=== PATIENT | male | born 1940 | race Caucasian/White ===

== ENCOUNTER 2018-10-22 19:19 | Inpatient (IN) | payer OTHER, MEDICARE ==
[2018-10-22] MEDS ORDERED: IPRATROPIUM/ALBUTEROL 3 ML DEYVIAL IH ONE (19:42)
[2018-10-22] MEDS ORDERED: methylPREDNISolone SOD SUCC 125 MG/2 ML VIAL IVP ONE (19:42)
[2018-10-22] MEDS ORDERED: ALBUTEROL 3 ML DEYVIAL IH ONE (19:42)
[2018-10-22 19:47] LABS: PLATELET COUNT 161 10^3/uL (150-400)
--- NOTE | 2018-10-22 19:48 | EDPHY ---
H & P Stated Complaint: SOB, hx COPD, increasing his O2 xfew days Time Seen by Provider: 10/22/18 19:27 HPI/ROS: CHIEF COMPLAINT: Shortness of breath HISTORY OF PRESENT ILLNESS: 77-year-old male with a history of COPD, O2 dependent, 2 L daily, presents reporting that over last 1-2 days he has had increased shortness of breath with a significant increased today. No fever, minimal cough, no chest pain. Patient has been increasing his O2 with little relief in his tachypnea and shortness of breath. Used a meter dose inhaler today with minimal improvement. Also took prednisone 40 mg. No fever, chills, chest pain, palpitations, vomiting, diarrhea, urinary complaints, headache, lightheadedness. REVIEW OF SYSTEMS: A comprehensive 10 system review of systems was reviewed and is otherwise negative aside from elements mentioned in the history of present illness and medical decision making. PAST MEDICAL HISTORY: COPD, CABG SOCIAL HISTORY: Current smoker. VITAL SIGNS Reviewed by me. Heart rate 110 on my exam, respiratory rate 24, O2 sat on 3 L 96%. Blood pressure 170/102 GENERAL: Cachectic, thin male, accessory muscle use. HEENT: Atraumatic. Eyes: No icterus, no injection. Mouth: Dry mucous membranes. No erythema or lesions. Neck: supple with no adenopathy. LUNGS: Diffuse wheezes, no rhonchi or rales, diminished breath sounds. CARDIAC: Slightly irregular, no rubs murmurs or gallops appreciated ABDOMEN: Soft, nontender, nondistended, bowel sounds normal. BACK: No CVA tenderness. EXTREMITIES: No trauma. 1+ pitting edema to the lower calf.. NEURO: Alert and oriented, grossly nonfocal. SKIN: Warm and dry, no rash. PSYCHIATRIC: Normal mentation, no agitation. - Personal History Current Tetanus Diphtheria and Acellular Pertussis (TDAP): Yes - Medical/Surgical History Hx Asthma: No Hx Chronic Respiratory Disease: Yes Hx Diabetes: No Hx Cardiac Disease: Yes Hx Renal Disease: No Hx Cirrhosis: No Hx Alcoholism: No Hx HIV/AIDS: No Hx Splenectomy or Spleen Trauma: No Other PMH: PMHx: COPD, [place] 2009. PSHx: CABG 4 vessel, unk ear surgery, hernia repair, appy,PVD w/ stents, - Social History Smoking Status: Current every day smoker Constitutional: Initial Vital Signs Temperature (C) 36.8 C 10/22/18 19:20 Heart Rate 79 10/22/18 19:20 Respiratory Rate 20 10/22/18 19:20 Blood Pressure 152/91 H 10/22/18 19:20 O2 Sat (%) 97 10/22/18 19:20 O2 Delivery Mode Nasal Cannula O2 (L/minute) 3 Allergies/Adverse Reactions: No Known Allergies Allergy (Unverified 10/22/18 19:29) Home Medications: Medication Instructions Recorded Budesonide/Formoterol 160/4.5 2 puffs IH BID 05/04/16 [Symbicort 160-4.5 Mcg Inh (*)] Albuterol Sulfate [Ventolin Hfa] 1 - 2 puffs IH Q4-6PRN PRN 10/22/18 Ipratropium/Albuterol [Combivent 1 inh IH QID PRN 10/22/18 Respimat Inhal [place](*)] predniSONE 20 mg PO BID 10/22/18 Medical Decision Making - Diagnostics EKG Interpretation: 12-LEAD EKG: Please see the full report in [facility]. My interpretation: Irregular rhythm, to be nonsustained ventricular tachycardia, downsloping ST segments inferior leads. Imaging Results: Chest X-Ray 10/22/18 19:42 Impression: 1. Underlying emphysema/COPD similar to the prior study. 2. Stable pleural thickening left base laterally. 3. Peribronchial thickening bilaterally similar to the prior study. This can be seen with chronic bronchitis or reactive airways disease. Imaging: I viewed and interpreted images myself ED Course/Re-evaluation: Ill-appearing 77-year-old male with accessory muscle use and diffuse wheezes. Patient has an irregular heartbeat with new peripheral edema. Reports feeling poorly, decreased appetite. EKG concerning for 2 beat ventricular tachycardia , evidence of multifocal atrial tachycardia versus AFib, and ischemic changes. Patient IV placed. Labs including bedside troponin and lactic acid were ordered. DuoNeb and albuterol neb provided. Chest x-ray ordered. Chest x-ray without signs of infiltrate. [place] [address], elevated troponin, elevated BNP. No history of fever. Patient will be admitted to the hospitalist service. Differential Diagnosis: Differential diagnosis for the patient's shortness of breath was considered including but not limited to pulmonary infectious processes, COPD exacerbation, pulmonary emboli, pulmonary edema, congestive heart failure, and cardiac causes. Consult/Admit Bed Type: Dr. Allan Ennis, [facility] - Data Points Laboratory Results: Laboratory Results 10/22/18 19:30 10/22/18 19:30 Medications Given: Acetylcysteine (Acetylcysteine 10% Ih/Po) 2 ml IH QID [facility] Stop: 04/22/19 20:59 Last Admin: 10/28/18 16:27 Dose: 2 ml Albuterol/Ipratropium (Duoneb) 3 ml IH QID [facility] Stop: 04/21/19 05:59 Last Admin: 10/28/18 16:27 Dose: 3 ml Aspirin Buffered (Aspirin Ec) 81 mg PO DAILY [facility] Stop: 04/24/19 08:59 Last Admin: 10/28/18 09:07 Dose: 81 mg Azithromycin (Zithromax) 250 mg PO DAILY [facility] PRN Reason: Protocol Stop: 11/24/18 08:59 Last Admin: 10/28/18 09:07 Dose: 250 mg Budesonide/Formoterol Fumarate (Symbicort 160-4.5 Mcg Inhaler) 2 puffs IH BID [facility] Stop: 04/21/19 20:59 Last Admin: 10/28/18 09:36 Dose: Not Given Enoxaparin Sodium (Lovenox) 40 mg SC DAILY [facility] Stop: 04/23/19 11:14 Last Admin: 10/28/18 09:07 Dose: 40 mg Guaifenesin (Mucinex) 1,200 mg PO BID [facility] Stop: 04/21/19 20:59 Last Admin: 10/28/18 09:07 Dose: 1,200 mg Lisinopril (Zestril) 5 mg PO DAILY [facility] Stop: 04/21/19 16:14 Last Admin: 10/28/18 09:07 Dose: 5 mg Morphine Sulfate (Roxanol Oral Solution) 2.5 - 5 mg PO Q2H PRN PRN Reason: Short of Breath/Dyspnea Stop: 11/03/18 16:44 Last Admin: 10/26/18 22:24 Dose: 5 mg Venlafaxine HCl (Effexor Xr) 75 mg PO DAILY [facility] Stop: 04/23/19 08:59 Last Admin: 10/28/18 09:06 Dose: 75 mg Discontinued Medications Albuterol (Proventil Neb) 3 ml IH EDNOW ONE Stop: 10/22/18 19:43 Last Admin: 10/22/18 19:58 Dose: 3 ml Albuterol/Ipratropium (Duoneb) 3 ml IH EDNOW ONE Stop: 10/22/18 19:43 Last Admin: 10/22/18 19:58 Dose: 3 ml Furosemide (Lasix) 20 mg PO BID@0900,1500 [facility] Stop: 04/21/19 14:59 Last Admin: 10/25/18 15:12 Dose: 20 mg Sodium Chloride (Ns) 500 mls @ 1,000 mls/hr IV EDNOW ONE PRN Reason: Protocol Stop: 10/22/18 20:20 Last Admin: 10/22/18 19:58 Dose: 500 mls Azithromycin 500 mg/ Sodium (Chloride) 255 mls @ 255 mls/hr IV DAILY@2100 [facility] PRN Reason: Protocol Stop: 11/21/18 21:29 Last Admin: 10/23/18 20:30 Dose: 255 mls Sodium Chloride (Ns) 1,000 mls @ 100 mls/hr IV ONCE ONE Stop: 10/23/18 07:20 Last Admin: 10/22/18 22:16 Dose: 1,000 mls Methylprednisolone Sodium Succinate (Solu-Medrol) 125 mg IVP EDNOW ONE Stop: 10/22/18 19:43 Last Admin: 10/22/18 19:58 Dose: 125 mg Methylprednisolone Sodium Succinate (Solu-Medrol) 125 mg IVP Q6H [facility] Stop: 04/21/19 01:59 Last Admin: 10/24/18 14:31 Dose: 125 mg Montelukast Sodium (Singulair) 10 mg PO DAILY [facility] Stop: 04/23/19 08:59 Last Admin: 10/27/18 08:37 Dose: 10 mg Potassium Chloride (Klor-Con) 40 meq PO ONCE ONE Stop: 10/26/18 05:29 Last Admin: 10/26/18 06:03 Dose: 40 meq Prednisone (Prednisone) 60 mg PO DAILY [facility] Stop: 04/23/19 08:59 Last Admin: 10/28/18 09:06 Dose: 60 mg Tiotropium [place] (Spiriva Handihaler) 18 mcg IH DAILY [facility] Stop: 04/22/19 16:44 Last Admin: 10/27/18 10:58 Dose: 1 puffs Point of Care Test Results: Chemistry 10/22/18 19:38 POC Troponin I 0.03 ng/mL ng/mL (0.00-0.08) Departure - [facility] Clinical Impression: Chronic obstructive pulmonary disease with acute exacerbation, Acute coronary syndrome Arrhythmia Qualifiers: Arrhythmia type: unspecified cardiac arrhythmia Qualified Code(s): I49.9 - Cardiac arrhythmia, unspecified Congestive heart failure Qualifiers: Heart failure type: unspecified Heart failure chronicity: acute Qualified Code( s): I50.9 - Heart failure, unspecified Condition: Fair
[2018-10-22] MEDS ORDERED: NS 500 ML IV ONE (19:51)
[2018-10-22] MEDS ORDERED: HYDROmorphONE/DILAUDID 1 MG/ML INJ IVP PRN (21:02)
[2018-10-22] MEDS ORDERED: HYDROCODONE/APAP 5/325 TAB PO PRN (21:02)
[2018-10-22] MEDS ORDERED: oxyCODONE IR 5 MG TAB PO PRN (21:02)
[2018-10-22] MEDS ORDERED: ONDANSETRON 4 MG/2 ML VIAL IVP PRN (21:02)
[2018-10-22] MEDS ORDERED: ONDANSETRON DISINTEGRATING 4 MG TAB PO PRN (21:02)
[2018-10-22] MEDS ORDERED: ALBUTEROL 60 PUFFS/8 GM MDI IH PRN (21:02)
[2018-10-22] MEDS ORDERED: NICOTINE POLACRILEX 2 MG GUM B PRN (21:02)
[2018-10-22] MEDS ORDERED: ACETAMINOPHEN 325 MG TAB PO PRN (21:02)
[2018-10-22] MEDS ORDERED: PROMETHAZINE HCL 25 MG/ML INJ IVP PRN (21:02)
[2018-10-22] MEDS ORDERED: IOPAMIDOL (ISOVUE 370) 100 ML BTL IV ONE (21:09)
--- NOTE | 2018-10-22 21:15 | PDGENHP ---
History and Physical - Chief Complaint sob - History of Present Illness 77 yo M with PMH of CAD sp CABG as well as COPD and chronic hypoxic respiratory failure on 2L chronically as well as chronic steroid use presenting with increased sob x several days. Patient is accompanied by his 2 daughters and they note that this has been present longer than that, but much worse recently. He notes that he has had swelling in his legs for at least the last several days , likely longer, but much worse recently. He denies pain in his chest or legs. He denies fevers or chills. He notes that he has had to turn his oxygen up to 5L and was still short of breath then. He notes that he takes prednisone at least 20mg basically every day, he was a bit unclear as to how he is supposed to take it but notes that if he doesn't take it he feels like he can't breathe and therefore takes it daily. He has not had much appetite for quite some time and has lost a significant amount of weight, although he can't say exactly how much. He notes that he just doesn't feel like eating. He lies down for much of the day per his daughters. He does continue to smoke, but states he has cut down to 1/3 pack per day. History Information - Allergies/Home Medication List Allergies/Adverse Reactions: No Known Allergies Allergy (Unverified 10/22/18 19:29) Home Medications: Budesonide/Formoterol 160/4.5 [Symbicort 160-4.5 Mcg Inh (*)] 2 puffs IH BID 11/12 [Last Taken 10/22/18 21:00] Albuterol Sulfate [Ventolin Hfa] 1 - 2 puffs IH Q4-6PRN PRN 10/22/18 [Last Taken Unknown] Ipratropium/Albuterol [Combivent Respimat Inhal [place](*)] 1 inh IH QID PRN 10/22 [Last Taken Unknown] predniSONE 20 mg PO BID 10/22/18 [Last Taken 10/22/18] I have personally reviewed and updated: family history, medical history, social history, surgical history - Past Medical History coronary artery disease, COPD Additional medical history: chronic respiratory failure- 2L chronically. chronic tobacco use. BPH - Surgical History Additional surgical history: hernia repairs. appendectomy. CABG. b/l ear surgery - Family History Positive for: non-pertinent Additional family history: M: CAD - Social History Smoking Status: Current every day smoker Alcohol Use: None Drug Use: None Additional social history: Lives with , is retired formerly worked at [employer]. Review of Systems Review of Systems: ROS: 10pt was reviewed & negative except for what was stated in HPI & below Physical Exam Physical Exam: Temp Pulse Resp BP Pulse Ox 36.8 C 105 H 20 129/97 H 96 10/22/18 19:20 10/22/18 20:54 10/22/18 20:54 10/22/18 20:54 10/22/18 20:54 O2 (L/minute) 3 Constitutional: chronically ill appearing, cachectic Eyes: PERRL, anicteric sclera, scleral injection Ears, Nose, Mouth, Throat: poor dentition, dry mucous membranes Cardiovascular: tachycardia, edema Respiratory: reduced air movement, respiratory distress Gastrointestinal: normoactive bowel sounds, soft, non-tender abdomen Genitourinary: no bladder tenderness Skin: warm, normal color Musculoskeletal: full muscle strength Neurologic: AAOx3 Psychiatric: interacting appropriately, flat affect Lab Data & Imaging Review 10/22/18 19:30 10/22/18 19:30 WBC 14.35 10^3/uL (3.80-9.50) H 10/22/18 19:30 RBC 4.77 10^6/uL (4.40-6.38) 10/22/18 19:30 Hgb 15.5 g/dL (13.7-17.5) 10/22/18 19:30 Hct 47.7 % (40.0-51.0) 10/22/18 19:30 MCV 100.0 fL (81.5-99.8) H 10/22/18 19:30 MCH 32.5 pg (27.9-34.1) 10/22/18 19:30 MCHC 32.5 g/dL (32.4-36.7) 10/22/18 19:30 RDW 12.4 % (11.5-15.2) 10/22/18 19:30 Plt Count 161 10^3/uL (150-400) 10/22/18 19:30 MPV 10.2 fL (8.7-11.7) 10/22/18 19:30 Neut % (Auto) 92.5 % (39.3-74.2) H 10/22/18 19:30 Lymph % (Auto) 3.1 % (15.0-45.0) L 10/22/18 19:30 [place] % (Auto) 3.7 % (4.5-13.0) L 10/22/18 19:30 Eos % (Auto) 0.0 % (0.6-7.6) L 10/22/18 19:30 Baso % (Auto) 0.1 % (0.3-1.7) L 10/22/18 19:30 Nucleat RBC Rel Count 0.0 % (0.0-0.2) 10/22/18: Absolute Neuts (auto) 13.27 10^3/uL (1.70-6.50) H 10/22/18 19:30 Absolute Lymphs (auto) 0.44 10^3/uL (1.00-3.00) L 10/22/18 19:30 Absolute Monos (auto) 0.53 10^3/uL (0.30-0.80) 10/22/18 19:30 Absolute Eos (auto) 0.00 10^3/uL (0.03-0.40) L 10/22/18 19:30 Absolute Basos (auto) 0.01 10^3/uL (0.02-0.10) L 10/22/18 19:30 Absolute Nucleated RBC 0.00 10^3/uL (0-0.01) 10/22/18 19: Immature Gran % 0.6 % (0.0-1.1) 10/22/18 19: Immature Gran # 0.09 10^3/uL (0.00-0.10) 10/22/18 19:30 RBC/WBC/PLT Morphology TNP 10/22/18 19: Platelet Estimate TNP 10/22/18 19:30 D-Dimer 0.73 ug/mLFEU (0.00-0.50) H 10/22/18 19:30 VBG Lactic Acid 2.6 mmol/L (0.7-2.1) H 10/22/18 19:30 Sodium 138 mEq/L (135-145) 10/22/18 19:30 Potassium 4.0 mEq/L (3.5-5.2) 10/22/18 19: Chloride 99 mEq/L (97-110) 10/22/18: Carbon Dioxide 36 mEq/l (22-31) H 10/22/18 19:30 Anion Gap 3 mEq/L (6-14) L 10/22/18:30 BUN 36 mg/dL (7-23) H 10/22/18:30 Creatinine 0.6 mg/dL (0.7-1.3) L 10/22/18 19:30 Estimated GFR > 60 10/22/18: Glucose 130 mg/dL (70-100) H 10/22/18: Calcium 9.3 mg/dL (8.5-10.4) 10/22/18:30 POC Troponin I 0.03 ng/mL (0.00-0.08) 10/22/18: Troponin I 0.038 ng/mL (0.000-0.034) H 10/22/18:30 NT-Pro-B Natriuret Pep 2030 pg/mL (0-450) H 10/22/18 19:30 Visualized and Interpreted Chest x-ray results: Yes Chest X-Ray results: no infiltrate Visualized and Interpreted EKG results: Yes EKG additional interpertation: tachy, a fib vs MAT, LVH Assessment & Plan Assessment: 77 yo M with PMH of CAD, COPD pw acute on chronic hypoxic respiratory failure, a fib vs MAT and e/o CHF likely right sided # acute on chronic hypoxic respiratory failure: presenting with significant sob , decreased bs and increased wob and initially requiring 5L. Presumably due to COPD exacerbation as next, but given lower extremity edema, tachycardia and hx of prolonged immobility high risk for PE as well. Will get CTA and treat if indicated. Otherwise as next. # copd with acute exacerbation: likely due to viral illness and respiratory panel pending, continue scheduled nebs, prn albuterol nebs and IV solumedrol for now. CTA as above. # lower extremity edema: concerning for right heart failure given chronic lung disease as above, echo in am, holding off on diuretics for now as no significant pulmonary edema noted on cxr and plan for dye load as above. # a fib vs mAT: with rate in the low 100s, will get repeat ECG and monitor on tele, echo in am, TSH ordered, cardiology consulted, will start lovenox for now # hyperglycemia: in the setting of chronic steroid use, will check hgb a1c # elevated troponin: without chest pain but tachycardia as above, will get serial trops, echo/cards consult as above # pre renal azotemia: elevated BUN and patient appears dry on exam despite total body volume overload, will give gentle IVF post contrast load # BPH: continue op meds # CAD: with hx of CABG, elevated troponin noted and w/u as above # cachexia: patient with significant weight loss, cachectic on exam, presumably pulmonary cachexia, dietary consult # DNR--reviewed with patient and his daughter, he recognizes that the progression of his lung disease will eventually end his life and does not want heroic measures, may be appropriate to consult hospice/palliative on this hospital stay # IP status Patient new to my care. Old records reviewed and summarized as above. Care plan reviewed with ER doctor, further hx obtained from patients daughters present at bedside.
[2018-10-22] MEDS ORDERED: NS 1,000 ML IV ONE (21:21)
[2018-10-22] MEDS: AZITHROMYCIN IV 500 MG in NS 250 ML IV SCH (22:16)
[2018-10-23 01:44] LABS: PLATELET COUNT 144 10^3/uL (150-400)
[2018-10-23] MEDS: methylPREDNISolone SOD SUCC 125 MG/2 ML VIAL IVP SCH ×4 (01:44→20:30)
[2018-10-23] MEDS: IPRATROPIUM/ALBUTEROL 3 ML DEYVIAL IH SCH ×4 (05:00→20:59)
--- NOTE | 2018-10-23 11:57 | PDMN ---
Medical Necessity Medical necessity: Pt meets IP criteria per MD & MCG M-100; est los >2 mn for eval/tx of acute COPD exacerbation w/worsening dyspnea, acute on chronic respiratory failure, concerns for R-sided heart failure & AFIB vs MAT; admit for further workup/monitoring, respiratory supportive care & Cardiology/ Palliative consults; comorbid advanced age, COPD on chronic steroids & O2, CAD, CABG, smoker; per H&P & order 10/22/18
--- NOTE | 2018-10-23 13:22 | CPEKG ---
Test Reason : OPEN Blood Pressure : / mmHG Vent. Rate : 087 BPM Atrial Rate : 091 BPM P-R Int : 110 ms QRS Dur : 087 ms QT Int : 389 ms P-R-T Axes : 080 074 -77 degrees QTc Int : 468 ms Sinus rhythm Paired ventricular premature complexes Consider left ventricular hypertrophy Anterior Q waves, possibly due to LVH Nonspecific T abnormalities, inferior leads Confirmed by Neo Mehta ([id number]) on 10/23/2018 1:21:55 PM Referred By: Allan Ennis Confirmed By:Neo Mehta
[2018-10-23] MEDS ORDERED: ALBUTEROL 3 ML DEYVIAL IH PRN (13:56)
[2018-10-23] MEDS: FUROSEMIDE 20 MG TAB PO SCH (14:08)
--- NOTE | 2018-10-23 14:38 | ASMTCMCOM ---
CM Note CM Note Notes: Pt is a 77 y/o man admitted for shortness of breath. Pt uses 2L of o2 at baseline. Pt is a smoker but reportedly had cut down. Pt and pts adult children had a palliative today w/ Jo[facility]. PT is recommending HC. Pts daughter wanted to speak to their Mom and did not want CM to call. OT is pending. CM provided palliative handout to daughters to give to Mom. Pt does not use a walker or cane at baseline. Pt still drives or has his children drive him places. Pt is being followed by transitional care. Pt is still in the process of getting [employer] insurance. Pt is interested in unskilled HC. [facility] accepts [place] [employer] insurance and provides unskilled care. CM provided the [facility] phone number to family. Needs are TBD at this time. CM to follow. Plan: TBD Date Signed: 10/23/2018 02:37 PM Electronically Signed By:CHASE Carrion
--- NOTE | 2018-10-23 15:29 | HOSPPROG ---
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 -dietary following Subjective: c/o severe SOB, frustrated that we don't have more to offer Objective: Vital Signs Temp Pulse Resp BP Pulse Ox 36.4 C 93 17 161/76 H 98 10/23/18 15:11 10/23/18 15:11 10/23/18 15:11 10/23/18 15:11 10/23/18 15:11 Laboratory Results 10/23/18 01:30 10/23/18 01:30 10/22/18 10/23/18 10/24/18 05:59 05:59 05:59 Intake Total 150 400 Balance 150 400 CTA chest - no PE EKG viewed, my personal interpretation is - sinus tachy with PAC - Physical Exam Constitutional: chronically ill appearing, uncomfortable, cachectic Cardiovascular: regular rate and rhythym, no murmur, rub, or gallop Respiratory: reduced air movement, respiratory distress Gastrointestinal: normoactive bowel sounds, soft, non-tender abdomen, no palpable masses Skin: no rashes or abrasions, no fluctuance, no induration Neurologic: AAOx3, sensation intact bilaterally Psychiatric: interacting appropriately, not anxious, not encephalopathic, thought process linear ICD10 Worksheet Patient Problems: Problems Problem Status Onset COPD (chronic obstructive pulmonary disease) Acute
--- NOTE | 2018-10-23 15:33 | ECHO ---
[email or web address] [address] [address] Main: [phone] Echocardiography Examination Transthoracic Name: SHATNELLE BARRERA MR#: [id number] Study Date: 10/23/2018 Study Time: 09:33 AM Date of : 1940 Age: 77 year(s) Height: 165.1 cm (65 in.) Weight: 45.36 kg (100 lb.) BSA: 1.47 m2 Gender: Male Examination: Echo Contrast: Image Quality: Adequate apical window, technically Rhythm: difficult parasternal window Heart Rate: BP: 131 mmHg/92 mmHg Indication: ? A fib, chf Procedure Staff Referring Physician: Rag Sorter And Cutter: Maddison Matthew [facility] Reading Physician: Vira Kapadia MD Requesting Provider: Ordering Physician: Allan Ennis Indication: ? A fib, chf Measurements Chambers AV/MV Label Value Normal Value Label Value Normal Value LVOTd 1.9 cm (1.9cm - 2.1cm) AV PGmax 9 mmHg LVOT VTI 19.5 cm (18cm - 22cm) AV PGmean 6 mmHg LVDd, 2D 5.6 cm (4.2cm - 5.9cm) AV Vmax 1.46 m/s LVDs, 2D 4.3 cm (2.1cm - 4cm) ANGEL (VTI) 1.8 cm2 IVSd, 2D 0.9 cm (0.6cm - 1.1cm) MV E Vmax 0.87 m/s LVPWd, 2D 0.9 cm (0.6cm - 1cm) MV A Vmax 1.35 m/s LVEF, BP 44 % (55% - 70%) MV E/A 0.64 LVEF, 2D 46 % (54% - 74%) MV E/E' lateral 11.5 LVOT PGmean 2 mmHg MV E/E' septal 13 (0.45 - 1.25) LVOT Vmean 0.75 m/s MV DT 264 ms RVDd, 2D 2.7 cm (1.9cm - 3.8cm) MV E' septal 0.07 m/s LA Volume, BP 50 ml (18ml - 58ml) MV PHT 0.08 s LADs, 2D 3.9 cm (3cm - 4cm) MVA PHT 2.7 cm2 LAESV index, BP 34 ml/m2 MV E' lateral 0.08 m/s RA Area 10.5 cm2 MV E/E' mean 11.6 Additional Vessels MV PHT 83 ms Label Value Normal Value MV E' mean 0.08 m/s AoRoot, 2D 2.9 cm (1.4cm - 2.6cm) TV/PV IVC 1.5 cm (1.2cm - 2.3cm) Patient: SHANTELLE BARRERA Study Date: 10/23/2018 Page 1 of 3 09:33 AM Label Value Normal Value RA Pressure 5 mmHg RVSP 35 mmHg TR Pmax 30 mmHg TR Vmax 2.74 m/s PV PGmax 4 mmHg PV Vmax, Caliper 1.03 m/s (0.6m/s - 0.9m/s) Conclusions 1. the left ventricle is normal in size. Mildly reduced LV systolic function with an ejection fraction of 44%. There is inferior hypokinesis as well as septal hypokinesis. The septum is bright suggestive of prior myocardial infarction in that territory. Grade 1 diastolic dysfunction. 2. The right ventricle is normal in size and systolic function 3. [id number] mitral regurgitation. 4. Mild aortic regurgitation. 5. Mild tricuspid regurgitation with normal estimated PA systolic pressure. 6. Compared with 05/04/2016 LV systolic function wall motion are similar. Mitral regurgitation has progressed slightly. Findings Left Ventricle: Left ventricle is normal in size. Mildly reduced systolic left ventricular function. The ejection fraction, measured by Simpsons method, is 44 %. EF range is estimated at 40 % - 45 %. Inferior hypokinesis.Septal hypokinesis. The septum is bright suggestive of previous myocardial infarction. Right Ventricle: Normal size right ventricle. Right ventricular systolic function is normal. Left Atrium: The left atrium is normal in size. Right Atrium: The right atrium is normal in size. Mitral Valve: Mitral valve appears structurally normal. Mild to moderate mitral regurgitation. No mitral valve stenosis. There is mild mitral thickening. Aortic Valve: Aortic leaflets are structurally normal. Mild aortic regurgitation is present. There is no aortic stenosis. Tricuspid Valve: Tricuspid valve leaflets are structurally normal. Mild tricuspid regurgitation. No tricuspid valve stenosis. Right Ventricular systolic pressure is measured at 35 mmHg. Pulmonary artery pressure normal. Pulmonic Valve: Pulmonic valve not well visualized. Aorta: The aortic root size in 2D measures 2.9 cm. Aorta Measurements AoRoot, 2D is 2.9 cm. IVC: The inferior vena cava is normal in size. Pericardium: No pericardial effusion. Exam Details Procedure Ordered: Echo Procedure Status: Routine study Image Quality: Adequate apical window, technically difficult parasternal window Patient: SHANTELLE BARRERA Study Date: 10/23/2018 Page 2 of 3 09:33 AM Facility Location: Cardiac Echo 1 (No Signature Object) Patient: SHANTELLE BARRERA Study Date: 10/23/2018 Page 3 of 3 09:33 AM [id number]
--- NOTE | 2018-10-23 15:49 | GCON ---
[f rep st] CONSULTATION DATE OF CONSULTATION: 10/23/2018 ADMITTING DIAGNOSIS: Shortness of breath with increased lower extremity edema. HISTORY OF PRESENT ILLNESS: This is a 77-year-old male who has a past medical history of coronary ar olvin disease, with coronary artery bypass surgery and placement of one stent. He has pulmonary histo ry of COPD and chronic hypoxic respiratory failure, chronically on 2 L of oxygen by mask. He was bro ught into the emergency room by his 2 daughters, who check in on him frequently. It was noted that nhan boothe was having increased shortness of breath and difficulty breathing despite use of oxygen. The daleif bain also noted his legs had increased swelling and became concerned enough to take him to the emerge ncy room. They had noticed these changes over the past few days this week, having become notably wor se. He has no complaint of chest pain or leg pain. He has had no recent illnesses. He was using hi s oxygen up to 5 L and still feeling short of breath. Additionally, he was using steroids over the p ast several days. He does take prednisone 20 mg most days. It was also noted that he has not had a good appetite and subsequently has lost weight. Over the last week, his daughters have noted that he has been lying down the majority of the time, which was unusual for him. At time of my visit, he co ntinues to use oxygen by mask. He is able to converse and answer questions appropriately. One of ravindra hughes daughters contributed to the discussion as well. ALLERGIES: He has no known allergies. HOME MEDICATIONS: He is on Symbicort 160/4.5 mcg inhalation 2 puffs twice daily, Ventolin 1 to 2 puf fs inhaled every 4 hours as needed, Combivent inhale once four times daily as needed, prednisone 20 m g twice daily. PAST MEDICAL HISTORY: 1. He has a significant history of coronary artery disease and COPD. 2. Chronic respiratory failure. 3. BPH. PAST SURGICAL HISTORY: 1. Bilateral hernia repair. 2. Appendectomy. 3. Coronary artery bypass surgery. 4. Bilateral ear surgeries. FAMILY HISTORY: Maternal history of coronary artery disease. SOCIAL HISTORY: 1. Smoking: He currently smokes daily. 2. Alcohol use: None. 3. Drug use: No illicit drug use. 4. Social history: He does live with his in their home. He is retired, once working at [employer]. REVIEW OF SYSTEMS: Ten-point review of systems is negative except where stated otherwise in the HPI. PHYSICAL EXAMINATION: VITAL SIGNS: Blood pressure 163/89. Heart rate 91. Respiratory rate 20. Ox ygen saturation 96%, oxygen at 3 to 4 L per oxygen mask. Temperature 36.7. EKG shows a sinus rhythm with premature PVCs and couplets. CONSTITUTIONAL: He is cachectic and appears ill. EYES: PERRL. EAR, NOSE, THROAT, MOUTH: Mucous membranes are dry. CARDIOVASCULAR: Mild tachycardia, heart rate with irregularity, mild murmur. No rubs noted. RESPIRATORY: Lung sounds are diminished with no res piratory distress noted. GASTROINTESTINAL: Normoactive bowel sounds. Abdomen is soft and nontender. GENITOURINARY: No blad obi tenderness. SKIN: Warm and dry with pale color. MUSCULOSKELETAL: Full muscle strength. NEURO LOGICAL: Alert and oriented x3. PSYCHIATRIC: Interacts appropriately. INVESTIGATIONS: A complete blood count showed white blood count of 14.35, red blood cells 4.77, hemo globin 15.5, hematocrit 47.7, MCV 100.0, platelets 161. D-dimer 0.73. Sodium 138, potassium 4.0, BUN 36, creatinine 0.6, glucose 130. Troponin 0.03. Tropo ted #2 of 0.038. Most recent troponin 0.041. BNP 2040. TSH 0.521. Hemoglobin A1c 6.3. D-dimer 0. 73. Respiratory panel (source nasal sinus swab) result: No organisms detected. Chest x-ray done on 10/22/2018. Impression: 1. Underlying emphysema/COPD, similar to previous study. 2. Stable pleural thickening, left base laterally. 3. Peribronchial thickening, bilaterally, similar to prior study. 4. Radiologist's comment: This can be seen with chronic bronchitis or reactive airway disease. CT pulmonary angiogram, 10/22/2018. Impression: 1. No evidence of pulmonary embolus with CT protocol. 2. Mild stenosis, proximal left subclavian artery, secondary to predominantly noncalcified plaque. 3. Right subclavian stent identified proximally, appears to be patent. 4. No evidence of contrast enhancement of the proximal right vertebral artery. This finding was men tioned on remote MRA of the neck study from May 2007. 5. Moderate to marked COPD with emphysema. 6. Chronic bronchial wall thickening with some scattered mucus plugging. Consider underlying chroni c bronchitis and/or active reactive airway disease. EKG on 10/23/2018. Result: 1. Sinus rhythm. Paired ventricular premature complexes. 2. Consider left ventricular hypertrophy. 3. Anterior Q waves, possibly due to LVH. 4. Nonspecific T abnormalities of the inferior leads. IMPRESSION AND PLAN: 1. Acute on chronic hypoxic respiratory failure. He did present with significant shortness of breat h, using oxygen up to 5 L per mask. This likely was a chronic obstructive pulmonary disease exacerba tion. This morning on exam, he was using oxygen at 2 to 3 L per mask and breathing comfortably. 2. Lower extremity edema. Due to his chronic lung disease, an echocardiogram is pending to determin e if there is any right heart failure or other cardiac abnormalities contributing to his condition. 3. Mildly elevated troponin. This is likely due to an oxygen mismatch. Serial troponins have been flat. We will continue to watch closely. 4. Coronary artery disease. He does have a history of coronary artery disease with a history of cor onary artery bypass grafting. He has no chest pain or other anginal-type symptoms. His EKG shows no indication of cardiac ischemia. 5. Tachypnea. Of note, he has had significant weight loss. This likely is related to his pulmonary disease. A hospitalist dietary consultation was ordered. 6. He is status DNR. He and his daughters felt appropriate to proceed with a consultation with Hosp ice/Palliative Care. We will continue to follow along. Echocardiogram results are pending. Further treatment options balaji l be considered as appropriate once echocardiogram results are obtained. At this time, he is currently stable. Thank you very much for asking us to be part of this patient's care. We will continue to follow ketan [place] #: [id number]
--- NOTE | 2018-10-23 16:36 | PDCARPN ---
Cardiology Progress Note Chief Complaint: SOB Assessment/Plan: Assessment: 1. Acute on Chronic Resp Failure---Was using high dose oxygen at home, up to 5 L. Doing well on 2 to 3 L Oxygen on Mask. Solumedrol and Neb treatments. 2. COPD Exacerbation-- end stage. Palliative consult to be done. 3. CAD with hx CABG. -- Trops 0.04--Likely related to oxygen mismatch with Respiratory failure, Now improved. 4. A on C CHF exacerbation--Mild CMP...EF 44% by Echo. Lasix 20 mg BID, and added Lisinopril 5 mg this afternoon. ECHO stable compared to 2016. 5. LE edema---venous stasis---Keep feet elevated. Tried compression stockings, he refused. 6. Pulmonary Cachexia -- Malnutrition---Dietary following. 7. DNR Plan: Continue with low dose Lasix, add Lisinopril 5 mg. Oxygen at 2 to 3 L 10/23/18 16:22 Objective: Vital Signs (8 Hrs) Temp Pulse Resp BP Pulse Ox 10/23/18 15:11 36.4 C 93 17 161/76 H 98 10/23/18 13:00 101 H 99 10/23/18 11:20 91 19 99 10/23/18 10:48 36.7 C 102 H 16 163/89 H 96 Intake/Output (24 Hrs) 10/22/18 10/23/18 10/24/18 05:59 05:59 05:59 Intake Total 150 400 Balance 150 400 Intake: Oral (ml) 150 400 Other: Weight 41.458 kg Result Diagrams: 10/23/18 01:30 10/23/18 01:30 Cardiac Labs: Cardiac Lab Results (72 Hrs) 10/23/18 10/23/18 10/23/18 07:46 01:30 01:30 Troponin I 0.041 H 0.040 H 0.044 H ICD10 Worksheet Patient Problems: Problems Problem Status Onset COPD (chronic obstructive pulmonary disease) Acute
[2018-10-23] MEDS: LISINOPRIL 5 MG TAB PO SCH (17:03)
[2018-10-23] MEDS: AZITHROMYCIN IV 500 MG in NS 250 ML IV SCH (20:30)
[2018-10-23] MEDS: guaiFENesin 600 MG TAB.ER PO SCH (20:30)
[2018-10-23] MEDS: BUDESONIDE/FORMOTEROL 160/4.5 60 PUFFS/MDI IH SCH (21:13)
[2018-10-24] MEDS: methylPREDNISolone SOD SUCC 125 MG/2 ML VIAL IVP SCH ×3 (01:58→14:31)
[2018-10-24] MEDS: IPRATROPIUM/ALBUTEROL 3 ML DEYVIAL IH SCH ×4 (05:38→21:05)
[2018-10-24] MEDS: LISINOPRIL 5 MG TAB PO SCH (08:33)
[2018-10-24] MEDS: guaiFENesin 600 MG TAB.ER PO SCH ×2 (08:33→19:41)
[2018-10-24] MEDS: FUROSEMIDE 20 MG TAB PO SCH ×2 (08:33→14:31)
[2018-10-24] MEDS: BUDESONIDE/FORMOTEROL 160/4.5 60 PUFFS/MDI IH SCH ×2 (09:18→21:06)
--- NOTE | 2018-10-24 09:46 | PDCARPN ---
Cardiology Progress Note Chief Complaint: lower extremity edema and SOB Assessment/Plan: Assessment: 1. Acute on chronic respiratory distress. breathing has improved with treatments. On high flow Nc. 2. COPD, endstage 3. AN, somewhat improved with lasix. Still has bilateral ankle edema. He sits with feet hanging down most of the time. Has compression stockings on. Encouraged to elevate feet . 4. CAD, h/o CABG. Troponins slightly elevated, 0.04 and flat. No chest pains. EF 44%, stable from prior evaluation. Plan: Continue current lasix dose, compression stockings. Encouraged elevation of feet. 10/24/18 09:43 10/24/18 09:48 10/24/18 09:51 Objective: Vital Signs (8 Hrs) Temp Pulse Resp BP Pulse Ox 10/24/18 09:18 89 16 10/24/18 06:58 36.6 C 98 16 128/60 H 93 10/24/18 05:39 85 16 94 10/24/18 03:37 37 C 94 15 126/77 H 92 Intake/Output (24 Hrs) 10/23/18 10/24/18 10/25/18 05:59 05:59 05:59 Intake Total 150 1350 Output Total 975 Balance 150 375 Intake: Oral (ml) 150 1050 IV Intake (ml) 300 Output: Urine (ml) 975 Urinal 975 Other: Weight 41.458 kg 42.5 kg Number of Voids Urinal 3 Number of Stools Toilet 1 Result Diagrams: 10/23/18 01:30 10/23/18 01:30 Cardiac Labs: Cardiac Lab Results (72 Hrs) 10/23/18 10/23/18 10/23/18 07:46 01:30 01:30 Troponin I 0.041 H 0.040 H 0.044 H Telemetry: SR to ST with frequent PVCs, couplets. Occasional bigemeny - Physical Exam Constitutional: cachectic Cardiovascular: no murmurs, other (frequent extrasystoles), No regular rate and rhythm Respiratory: reduced air movement, expiratory wheeze Skin: other (Bilateral ankle edema, R>L mild) ICD10 Worksheet Patient Problems: Problems Problem Status Onset COPD (chronic obstructive pulmonary disease) Acute
--- NOTE | 2018-10-24 13:59 | HOSPPROG ---
Hospitalist Progress Note Assessment/Plan: # severe COPD/emphysema with acute exacerbation - cont solumedrol 125 iv Q6, scheduled nebs, symbicort - ongoing tobacco use - pulm to consult - may need hospice (pall care consult placed) # acute on chronic resp failure - on vapotherm # acute on chronic sCHF, EF 44% - cont lasix - zoe-i started here # vascular disease, subclavian stenosis - not on asa # CAD s/p CABG - not on asa # SPCM d/t pulmonary cachexia Subjective: still SOB Objective: Vital Signs Temp Pulse Resp BP Pulse Ox 36.7 C 102 H 18 115/74 93 10/24/18 11:49 10/24/18 11:49 10/24/18 11:49 10/24/18 11:49 10/24/18 11:49 Laboratory Results 10/23/18 01:30 10/23/18 01:30 10/23/18 10/24/18 10/25/18 05:59 05:59 05:59 Intake Total 150 1350 Output Total 975 280 Balance 150 375 -[address] personally reviewed - Physical Exam Constitutional: cachectic Cardiovascular: regular rate and rhythym, no murmur, rub, or gallop Respiratory: reduced air movement (bilat), expiratory wheeze (diffuse), respiratory distress (mod with retractions), No rhonchi ICD10 Worksheet Patient Problems: Problems Problem Status Onset COPD (chronic obstructive pulmonary disease) Acute
--- NOTE | 2018-10-24 14:57 | ASMTCMCOM ---
CM Note CM Note Notes: CM, pt and daughter Isamar [phone] met to discuss discharge planning. Pt reports he lives with his . PCP Dr. Fredrick Muniz Pt is refusing Home Care due not feeling comfortable with people in an out of the house. CM sent referral to [facility]. Dorina reports that they will call Isamar to set up in hospital report. After Pt and daughter feel comfortable with [facility] they will then speak to about working with [facility]. CM will follow Plan: Independently with possible [facility] Date Signed: 10/24/2018 02:57 PM Electronically Signed By:Fany Alvarez
--- NOTE | 2018-10-24 16:17 | ASMTCMCOM ---
CM Note CM Note Notes: Rasheed at [facility] [phone] reports that he set up an appt with the daughter and the earliest appt is tomorrow morning. CM to follow Date Signed: 10/24/2018 04:17 PM Electronically Signed By:Fany Alvarez
--- NOTE | 2018-10-24 16:59 | PDCONSULT ---
[employer] Note: ASSESSMENT 77 year old male with recurrent COPD exacerbation. Patient has a history of recurrent exacerbations. Reviewed typically he behaves more bronchitis as a post emphysema. This confirmed on CT chest. His unclear whether he has an allergic phenotype as most of his lab draws have been on are within recent administration of oral corticosteroid use. He has minimal oxygen requirement does not have evidence of cor pulmonale on CT chest. # COPD, acute exacerbation # dyspnea/air hunger # anxiety # acute on chronic hypoxemic respiratory failure # tobacco dependence # leukocytosis PLAN # agree with azithromycin, to be continued on discharge indefinitely to reduce the risk of subsequent exacerbations # add Spiriva, to be continued discharge # trial of inhaled N-acetylcysteine given mucus plugging on CT and wheeze # abg now # IgE now # patient may be a candidate for biologic therapies but chronic steroid is likely causing a falsely low IgE total and peripheral eosinophil level # bedside spirometry # change methylpred to pred 60 qday # agree with high-flow nasal cannula as high-flow rate reduces sensation of air hunger # may also use fans # low-dose liquid morphine for air hunger # initiate Effexor XR 75 mg daily to be continued discharge for underlying anxiety # counseled on tobacco cessation Thank you for this consult. Please feel free to call with any questions IMAGING I personally reviewed interpreted radiographic images well as formal radiology reads 10/22/2018 CTA chest-no PE, no evidence of enlarged pulmonary arteries, moderate centrilobular emphysema with mosaic attenuation. Extensive bronchial wall thickening with mucus plugging I was asked by Dr. Valdez of Hospital Medicine to evaluate this patient for acute exacerbation of COPD and severe air hunger CC MANDY Bentley is a very pleasant 77-year-old male with coronary disease and prior CABG and longstanding COPD on chronic steroid use admitted with recurrent COPD exacerbation. He has not seen Dr. Stuart in over 2 years. He presented to the emergency department with 4-5 days increasing shortness of breath and wheeze. He takes prednisone 20 mg daily. He reports compliance with his inhalers. Reports cough with productive sputum production. He denies fevers chills rash syncope chest pain. He continues to actively smoke Allergy No known drug allergies Medication Medication reconciliation was reviewed and performed. See EMR for details Past medical history Severe COPD. No PFTs in many years, coronary disease status post prior CABG, chronic hypoxemic respiratory failure using 2 liters/minutes nasal cannula, chronic ongoing tobacco use, BPH prior hernia surgery and appendectomy Social history Extensive smoking history still smoking 3rd pack per day. Lives with . Retired. Formally worked a [employer] Family history No history of severe recurrent COPD exacerbations Review of system A comprehensive 10 point review of systems was obtained is negative except as per HPI Physical exam Afebrile, tachypneic in the 30s mild accessory use heart rate 88, 97% on 2 L nasal cannula GEN: Lying in bed doing neb treatment mild respiratory distress NEURO: A&Ox3, CN 2-12 GI, mild anxiety, cachectic HEENT: PERRL, EOMI, MMM, OP clear NECK: supple, trachea midline CHEST diffuse inspiratory and expiratory wheezing CVS: rrr no m/r/g, no JVD appreciated PULM: CTAB, no wheezes/rales/rhonchi ABD: soft, NT, ND, NABS EXT: no swelling, no cyanosis, full ROM SKIN: warm, dry, intact, no rash PSYCH CAM negative, anxious affect Labs Reviewed significant for leukocytosis, viral PCR negative
[2018-10-24] MEDS: TIOTROPIUM INHALER 18 MCG/DOSE 5 DOSE/MDI IH SCH (18:25)
[2018-10-24] MEDS: morphINE 10 MG/0.5 ML UDSYR PO PRN (19:45)
[2018-10-24] MEDS: ACETYLCYSTEINE 10% IH/PO 4 ML VIAL IH SCH (21:05)
[2018-10-25] MEDS: IPRATROPIUM/ALBUTEROL 3 ML DEYVIAL IH SCH ×4 (06:41→20:59)
[2018-10-25] MEDS: ACETYLCYSTEINE 10% IH/PO 4 ML VIAL IH SCH ×4 (06:41→21:00)
[2018-10-25] MEDS: FUROSEMIDE 20 MG TAB PO SCH ×2 (08:31→15:12)
[2018-10-25] MEDS: LISINOPRIL 5 MG TAB PO SCH (08:31)
[2018-10-25] MEDS: guaiFENesin 600 MG TAB.ER PO SCH ×2 (08:31→21:20)
[2018-10-25] MEDS: AZITHROMYCIN 250 MG TAB PO SCH (08:32)
[2018-10-25] MEDS: predniSONE 20 MG TAB PO SCH (08:33)
[2018-10-25] MEDS: MONTELUKAST SODIUM 10 MG TAB PO SCH (08:34)
[2018-10-25] MEDS: VENLAFAXINE XR 75 MG CAP PO SCH ×2 (08:36→09:26)
[2018-10-25] MEDS: TIOTROPIUM INHALER 18 MCG/DOSE 5 DOSE/MDI IH SCH (09:15)
[2018-10-25] MEDS: BUDESONIDE/FORMOTEROL 160/4.5 60 PUFFS/MDI IH SCH ×2 (09:23→21:02)
--- NOTE | 2018-10-25 10:58 | PDINTPN ---
Rn Patient Services Progress Note Assessment/Plan: ASSESSMENT 77 year old male with recurrent COPD exacerbation. Patient has a history of recurrent exacerbations is on chronic moderate dose prednisone 20 mg daily. He although he has evidence of both chronic bronchitis and emphysema on CT he phenotypic Rene behaves more similar to bronchitis. This confirmed on CT chest. His unclear whether he has an allergic phenotype as most of his lab draws have been on or after recent administration of oral corticosteroid use. He has minimal oxygen requirement does not have evidence of cor pulmonale on CT chest. This clinical picture is complicated by significant anxiety # COPD, acute exacerbation. # dyspnea/air hunger # anxiety # acute on chronic hypoxemic respiratory failure # tobacco dependence # leukocytosis PLAN # agree with azithromycin, to be continued on discharge indefinitely to reduce the risk of subsequent exacerbations # add Spiriva, to be continued discharge # add Singulair to be continued on discharge given steroid dependence and possible allergic phenotype. # decrease prednisone to 40 mg daily starting tomorrow # low-dose liquid morphine for air hunger # Effexor XR 75 mg daily to be continued discharge for underlying anxiety # trial of inhaled N-acetylcysteine given mucus plugging on CT # agree with high-flow nasal cannula as high-flow rate reduces sensation of air hunger # follow-up IgE total # follow up bedside spirometry # patient may be a candidate for biologic therapies but chronic steroid is likely causing a falsely low IgE total and peripheral eosinophil level # counseled on tobacco cessation IMAGING I personally reviewed interpreted radiographic images well as formal radiology reads 10/22/2018 CTA chest-no PE, no evidence of enlarged pulmonary arteries, moderate centrilobular emphysema with mosaic attenuation. Extensive bronchial wall thickening with mucus plugging, normal appearance of pulmonary arteries, saber sheath trachea LABS 10/24/2018 ABG 7.49/45/73 Subjective: Slept well with low-dose morphine overnight. Less dyspneic today better air movement still short of breath no delirium. Agreeable to take SNRI Objective: Vital Signs Temp Pulse Resp BP Pulse Ox 36.6 C 87 17 115/63 92 10/25/18 07:49 10/25/18 07:49 10/25/18 07:49 10/25/18 07:49 10/25/18 07:49 Laboratory Results 10/23/18 01:30 10/23/18 01:30 10/24/18 10/25/18 10/26/18 05:59 05:59 05:59 Intake Total 1350 700 Output Total 97 805 Balance 375 -105 ICD10 Worksheet Patient Problems: Problems Problem Status Onset COPD (chronic obstructive pulmonary disease) Acute
--- NOTE | 2018-10-25 11:08 | HOSPPROG ---
Hospitalist Progress Note Assessment/Plan: # severe COPD/emphysema with acute exacerbation with ongoing tobacco use - pred 60 daily - cont nebs, Spiriva added, meta-nebs - considering intermediate azithromycin - risks of arrhythmias and hearing loss discussed with patient and dtr - palliative care consult # acute on chronic resp failure - on vapotherm # acute on chronic sCHF, EF 44% - cont lasix - zoe-i started here # vascular disease, subclavian stenosis - start asa # CAD s/p CABG - start asa # SPCM d/t pulmonary cachexia Subjective: slept better last night; breathing possibly better Objective: Vital Signs Temp Pulse Resp BP Pulse Ox 36.6 C 87 17 115/63 92 10/25/18 07:49 10/25/18 07:49 10/25/18 07:49 10/25/18 07:49 10/25/18 07:49 Laboratory Results 10/23/18 01:30 10/23/18 01:30 10/24/18 10/25/18 10/26/18 05:59 05:59 05:59 Intake Total 1350 700 Output Total 975 805 Balance 375 -105 high risk - Physical Exam Constitutional: uncomfortable, cachectic Cardiovascular: regular rate and rhythym, no murmur, rub, or gallop Respiratory: reduced air movement, expiratory wheeze, respiratory distress (,od) , No inspiratory crackles, No bronchial breath sounds Gastrointestinal: soft, non-tender abdomen, no palpable masses, No guarding, No rebound, No distension ICD10 Worksheet Patient Problems: Problems Problem Status Onset COPD (chronic obstructive pulmonary disease) Acute
[2018-10-25] MEDS: ENOXAPARIN 40 MG/0.4 ML SYR SC SCH (12:38)
--- NOTE | 2018-10-25 15:32 | ASMTCMCOM ---
CM Note CM Note Notes: Reviewed chart regarding discharge plan of care, pt's progress. Per CM report, pt was scheduled to meet with Dorina today for a Palliative Care evaluation. Call placed to Dorina to confirm meeting time; spoke with Rasheed. Per Rasheed, the pt's family canceled the appointment which was previously scheduled for 10:00 today. Rasheed said the decision to cancel was based upon new information and medication adjustments by the doctor. Per unit rounds and Dr. Valdez, the pt remains appropriate for Palliative Care services. CM requested [facility] follow up with the pt and family on Friday10/26/18. Per Rasheed, Shira from [facility] will reach out to the family. CM will continue to follow. Discharge Plan: To be determined, possible [facility] Palliative Care Date Signed: 10/25/2018 03:25 PM Electronically Signed By:Aleksandra Reyes RN
--- NOTE | 2018-10-25 16:22 | PDCARPN ---
Cardiology Progress Note Assessment/Plan: Assessment: 1. Acute on chronic respiratory distress. breathing has improved with treatments. On high flow Nc. 2. COPD, endstage 3. AN, somewhat improved with lasix. Still has bilateral ankle edema. He sits with feet hanging down most of the time. Has compression stockings on. Encouraged to elevate feet . 4. CAD, h/o CABG. Troponins slightly elevated, 0.04 and flat. No chest pains. EF 44%, stable from prior evaluation. Will sign off, nothing more to add. Plan: Continue current lasix dose, compression stockings. Encouraged elevation of feet. 10/24/18 09:43 10/24/18 09:48 10/24/18 09:51 10/25/18 16:22 Objective: Vital Signs (8 Hrs) Temp Pulse Resp BP Pulse Ox 10/25/18 15:10 36.4 C 96 20 134/72 H 93 10/25/18 12:00 36.8 C 104 H 20 135/48 H 90 L 10/25/18 10:35 83 16 93 Intake/Output (24 Hrs) 10/24/18 10/25/18 10/26/18 05:59 05:59 05:59 Intake Total 1350 700 Output Total 975 805 350 Balance 375 -105 -350 Intake: Oral (ml) 1050 700 IV Intake (ml) 300 Output: Urine (ml) 975 805 350 Urinal 975 805 350 Other: Weight 42.5 kg 41.9 kg Number of Voids Urinal 3 1 Number of Stools Toilet 1 Urinal 1 Result Diagrams: 10/23/18 01:30 10/23/18 01:30 Cardiac Labs: Cardiac Lab Results (72 Hrs) 10/23/18 10/23/18 10/23/18 07:46 01:30 01:30 Troponin I 0.041 H 0.040 H 0.044 H ICD10 Worksheet Patient Problems: Problems Problem Status Onset COPD (chronic obstructive pulmonary disease) Acute
[2018-10-25] MEDS: morphINE 10 MG/0.5 ML UDSYR PO PRN (21:19)
[2018-10-26 04:39] LABS: PLATELET COUNT 127 10^3/uL (150-400)
[2018-10-26] MEDS ORDERED: POTASSIUM CL 20 MEQ TAB PO ONE (05:28)
[2018-10-26] MEDS: IPRATROPIUM/ALBUTEROL 3 ML DEYVIAL IH SCH ×4 (05:42→21:52)
[2018-10-26] MEDS: ACETYLCYSTEINE 10% IH/PO 4 ML VIAL IH SCH ×4 (05:42→21:52)
[2018-10-26] MEDS: VENLAFAXINE XR 75 MG CAP PO SCH (08:25)
[2018-10-26] MEDS: MONTELUKAST SODIUM 10 MG TAB PO SCH (08:25)
[2018-10-26] MEDS: predniSONE 20 MG TAB PO SCH (08:25)
[2018-10-26] MEDS: guaiFENesin 600 MG TAB.ER PO SCH ×2 (08:25→20:54)
[2018-10-26] MEDS: ENOXAPARIN 40 MG/0.4 ML SYR SC SCH (08:25)
[2018-10-26] MEDS: ASPIRIN EC 81 MG TAB PO SCH (08:25)
[2018-10-26] MEDS: LISINOPRIL 5 MG TAB PO SCH (08:25)
[2018-10-26] MEDS: AZITHROMYCIN 250 MG TAB PO SCH (08:26)
--- NOTE | 2018-10-26 11:12 | HOSPPROG ---
Hospitalist Progress Note Assessment/Plan: # severe COPD/emphysema with acute exacerbation with ongoing tobacco use - slowly improving, but still dyspneic - pred 60 daily - cont nebs, Spiriva added, meta-nebs - considering assisted azithromycin - risks of arrhythmias and hearing loss discussed with patient and dtr - palliative care consult # acute on chronic resp failure - on vapotherm # acute on chronic sCHF, EF 44% - not on lasix currently - zoe-i started here # vascular disease, subclavian stenosis - start asa # CAD s/p CABG - start asa # SPCM d/t pulmonary cachexia Subjective: breathing feels better, but still dyspneic Objective: Vital Signs Temp Pulse Resp BP Pulse Ox 36.8 C 97 24 H 118/65 89 L 10/26/18 08:20 10/26/18 08:20 10/26/18 08:20 10/26/18 08:20 10/26/18 08:20 Laboratory Results 10/26/18 03:36 10/26/18 03:36 10/25/18 10/26/18 10/27/18 05:59 05:59 05:59 Intake Total 700 480 Output Total 805 700 Balance -105 -220 high risk on high flow O2 - Physical Exam Constitutional: cachectic Cardiovascular: regular rate and rhythym, no murmur, rub, or gallop Respiratory: reduced air movement (bilat), expiratory wheeze (mild), respiratory distress (mod), No inspiratory crackles Gastrointestinal: soft, non-tender abdomen, no palpable masses, No guarding, No rebound, No distension ICD10 Worksheet Patient Problems: Problems Problem Status Onset COPD (chronic obstructive pulmonary disease) Acute
[2018-10-26] MEDS: BUDESONIDE/FORMOTEROL 160/4.5 60 PUFFS/MDI IH SCH ×2 (11:15→21:51)
[2018-10-26] MEDS: TIOTROPIUM INHALER 18 MCG/DOSE 5 DOSE/MDI IH SCH (11:15)
--- NOTE | 2018-10-26 17:32 | CPEKG ---
Test Reason : OPEN Blood Pressure : / mmHG Vent. Rate : 114 BPM Atrial Rate : 000 BPM P-R Int : 114 ms QRS Dur : 089 ms QT Int : 374 ms P-R-T Axes : 087 079 -87 degrees QTc Int : 516 ms Atrial fibrillation Ventricular tachycardia, unsustained Consider left ventricular hypertrophy Anterior Q waves, possibly due to LVH Abnormal T, consider ischemia, inferior leads Confirmed by Shakira Shaw ([id number]) on 10/26/2018 5:31:26 PM Referred By: Shakira Shaw Confirmed By:Shakira Shaw
--- NOTE | 2018-10-26 18:37 | PDINTPN ---
Broommaker Progress Note Assessment/Plan: 77 M with recurrent COPD exacerbations and continues to smoke and use chronic prednisone, admitted 10/22 with exacerbation. Treated aggressively with steroids , antibiotics, bronchodilators and mucolytics. * COPD exacerbation- He may have end stage disease but no PFTs are currently available. His biggest obstacle is tobacco abuse which accelerates FEV1 loss over time. I think his chronic steroids cloud any evaluation of an asthma overlap and don't favor treatment directed toward this (eg singulair or SC biologics). In addition, I don't favor redundant therapies which may compete for the same receptors such as Ipratropium and tiotropium. I would continue mucomyst with albuterol as long as it is helping produce expectoration of secretions. I agree with ongoing macrolide antibiotics which have been shown to reduce exacerbations. There is currently no role for chronic systemic steroids in COPD and would favor a prolonged taper to off. Will discuss singulair, but I would favor dc. 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 If not already done, he would benefit from a nutrition consult and should have scheduled supplements such as ensure, boost etc. OK to bring from home * Hypoxia- titrate to sat >90% as tolerated Subjective: reports improvement in respiratory status Objective: Vital Signs Temp Pulse Resp BP Pulse Ox 36.9 C 93 21 H 143/93 H 91 L 10/26/18 16:37 10/26/18 16:37 10/26/18 16:37 10/26/18 16:37 10/26/18 16:37 Laboratory Results 10/26/18 03:36 10/26/18 03:36 10/25/18 10/26/18 10/27/18 05:59 05:59 05:59 Intake Total 700 480 350 Output Total 805 700 75 Balance -105 -220 275 Physical Exam - Physical Exam General Appearance: alert, no apparent distress, cachetic, thin EENT: PERRL/EOMI Neck: supple Respiratory: decreased breath sounds, wheezing, prolonged expiration, No respiratory distress, No accessory muscle use Cardiac/Chest: regular rate, rhythm, No edema, No JVD Abdomen: non-tender, soft, No distended Skin: normal color, warm/dry, No cyanosis Lymphatic: no adenopathy Extremities: No pedal edema Neuro/Psych: alert, normal mood/affect, oriented x 3 ICD10 Worksheet Patient Problems: Problems Problem Status Onset COPD (chronic obstructive pulmonary disease) Acute
[2018-10-26] MEDS: morphINE 10 MG/0.5 ML UDSYR PO PRN (22:24)
[2018-10-27] MEDS: IPRATROPIUM/ALBUTEROL 3 ML DEYVIAL IH SCH ×4 (05:33→20:07)
[2018-10-27] MEDS: ACETYLCYSTEINE 10% IH/PO 4 ML VIAL IH SCH ×4 (05:33→20:06)
[2018-10-27] MEDS: VENLAFAXINE XR 75 MG CAP PO SCH (08:36)
[2018-10-27] MEDS: ENOXAPARIN 40 MG/0.4 ML SYR SC SCH (08:36)
[2018-10-27] MEDS: predniSONE 20 MG TAB PO SCH (08:37)
[2018-10-27] MEDS: LISINOPRIL 5 MG TAB PO SCH (08:37)
[2018-10-27] MEDS: AZITHROMYCIN 250 MG TAB PO SCH (08:37)
[2018-10-27] MEDS: guaiFENesin 600 MG TAB.ER PO SCH ×2 (08:37→19:43)
[2018-10-27] MEDS: ASPIRIN EC 81 MG TAB PO SCH (08:37)
[2018-10-27] MEDS: MONTELUKAST SODIUM 10 MG TAB PO SCH (08:37)
[2018-10-27] MEDS: TIOTROPIUM INHALER 18 MCG/DOSE 5 DOSE/MDI IH SCH (10:58)
[2018-10-27] MEDS: BUDESONIDE/FORMOTEROL 160/4.5 60 PUFFS/MDI IH SCH ×2 (10:58→20:12)
[2018-10-27] MEDS ORDERED: PROTOCOL POTASSIUM 1 DOSE MISC PRN (11:16)
--- NOTE | 2018-10-27 13:26 | HOSPPROG ---
Hospitalist Progress Note Assessment/Plan: # severe COPD/emphysema with acute exacerbation with ongoing tobacco use - slowly improving, but still dyspneic - pred 60 daily (on 20 bid at home) - cont nebs, meta-nebs, pulm hygiene - considering retirement azithromycin - risks of arrhythmias and hearing loss discussed with patient and dtr - palliative care consult # acute on chronic resp failure - on vapotherm - will try to wean to wall O2 today # acute on chronic sCHF, EF 44% - not on lasix currently - zoe-i started here # vascular disease, subclavian stenosis - start asa # CAD s/p CABG - start asa # SPCM d/t pulmonary cachexia Subjective: breathing possibly slightly better Objective: Vital Signs Temp Pulse Resp BP Pulse Ox 36.8 C 84 17 105/56 L 90 L 10/27/18 11:48 10/27/18 11:48 10/27/18 11:48 10/27/18 11:48 10/27/18 11:48 Laboratory Results 10/26/18 03:36 10/26/18 03:36 10/26/18 10/27/18 10/28/18 05:59 05:59 05:59 Intake Total 480 550 300 Output Total 700 675 200 Balance -220 -125 100 - Physical Exam Constitutional: cachectic Cardiovascular: regular rate and rhythym, no murmur, rub, or gallop Respiratory: reduced air movement (diffuse bilat), expiratory wheeze (mild), respiratory distress (mod with tripoding, retractions), No inspiratory crackles Gastrointestinal: soft, non-tender abdomen, no palpable masses, No guarding, No rebound, No distension ICD10 Worksheet Patient Problems: Problems Problem Status Onset COPD (chronic obstructive pulmonary disease) Acute
--- NOTE | 2018-10-27 14:18 | PDINTPN ---
Screening Tech Progress Note Assessment/Plan: 77 M with recurrent COPD exacerbations and continues to smoke and use chronic prednisone, admitted 10/22 with exacerbation. Treated aggressively with steroids , antibiotics, bronchodilators and mucolytics. * COPD exacerbation- He may have end stage disease but no PFTs are currently available. His biggest obstacle is tobacco abuse which accelerates FEV1 loss over time. I think his chronic steroids cloud any evaluation of an asthma overlap and don't favor treatment directed toward this (eg singulair or SC biologics). In addition, I don't favor redundant therapies which may compete for the same receptors such as Ipratropium and tiotropium. I would continue mucomyst with albuterol as long as it is helping produce expectoration of secretions. I agree with ongoing macrolide antibiotics which have been shown to reduce exacerbations. There is currently no role for chronic systemic steroids in COPD and would favor a prolonged taper to off. I dc'd spiriva and singulair today. An elevated IgE is not diagnostic of asthma. 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 If not already done, he would benefit from a nutrition consult and should have scheduled supplements such as ensure, boost etc. OK to bring from home * Hypoxia- titrate to sat >90% as tolerated, hopefully off vapotherm today. Agree with palliative care consult 10/27/18 14:16 Subjective: reports improvement daily in small increments Objective: Vital Signs Temp Pulse Resp BP Pulse Ox 36.8 C 84 17 105/56 L 90 L 10/27/18 11:48 10/27/18 11:48 10/27/18 11:48 10/27/18 11:48 10/27/18 11:48 Laboratory Results 10/26/18 03:36 10/26/18 03:36 10/26/18 10/27/18 10/28/18 05:59 05:59 05:59 Intake Total 480 550 300 Output Total 700 675 200 Balance -220 -125 100 Physical Exam - Physical Exam General Appearance: alert, no apparent distress, cachetic, thin EENT: PERRL/EOMI Neck: supple Respiratory: lungs clear, normal breath sounds, decreased breath sounds, No respiratory distress, No accessory muscle use, No wheezing Cardiac/Chest: regular rate, rhythm, No edema Abdomen: non-tender, soft, No distended Skin: normal color, warm/dry, No cyanosis Lymphatic: no adenopathy Extremities: No pedal edema Neuro/Psych: alert, normal mood/affect, oriented x 3 ICD10 Worksheet Patient Problems: Problems Problem Status Onset COPD (chronic obstructive pulmonary disease) Acute
--- NOTE | 2018-10-27 16:06 | ASMTCMCOM ---
CM Note CM Note Notes: Pts case discussed in tx rounds. CM spoke w/ pts daughter Sindhu (P#: [phone]). Sindhu reports that her Mom, pts makes all the decisions and they are not interested in HC or palliative at this time. Sindhu is requesting that [facility] stops calling. CM communicated this w/ [facility]. CM communicated this w/ Dutch with palliative. CM available for changes. Plan: Independent Date Signed: 10/27/2018 04:05 PM Electronically Signed By:CHASE Carrion
[2018-10-28 04:46] LABS: PLATELET COUNT 105 10^3/uL (150-400)
[2018-10-28] MEDS: ACETYLCYSTEINE 10% IH/PO 4 ML VIAL IH SCH ×4 (05:12→20:58)
[2018-10-28] MEDS: IPRATROPIUM/ALBUTEROL 3 ML DEYVIAL IH SCH ×4 (05:13→20:58)
[2018-10-28] MEDS: VENLAFAXINE XR 75 MG CAP PO SCH (09:06)
[2018-10-28] MEDS: predniSONE 20 MG TAB PO SCH (09:06)
[2018-10-28] MEDS: ASPIRIN EC 81 MG TAB PO SCH (09:07)
[2018-10-28] MEDS: guaiFENesin 600 MG TAB.ER PO SCH ×2 (09:07→19:55)
[2018-10-28] MEDS: AZITHROMYCIN 250 MG TAB PO SCH (09:07)
[2018-10-28] MEDS: ENOXAPARIN 40 MG/0.4 ML SYR SC SCH (09:07)
[2018-10-28] MEDS: LISINOPRIL 5 MG TAB PO SCH (09:07)
[2018-10-28] MEDS: BUDESONIDE/FORMOTEROL 160/4.5 60 PUFFS/MDI IH SCH ×2 (09:36→20:58)
[2018-10-28] MEDS ORDERED: CEPACOL LOZENGE PO PRN (11:50)
--- NOTE | 2018-10-28 13:04 | PDINTPN ---
Utility Operator Yarn Progress Note Assessment/Plan: 77 M with recurrent COPD exacerbations and continues to smoke and use chronic prednisone, admitted 10/22 with exacerbation. Treated aggressively with steroids , antibiotics, bronchodilators and mucolytics. * COPD exacerbation- He likely has end stage disease but no PFTs are currently available. His biggest obstacle is tobacco abuse which accelerates FEV1 loss over time. I think his chronic steroids cloud any evaluation of an asthma overlap and don't favor treatment directed toward this (eg singulair or SC biologics). In addition, I don't favor redundant therapies which may compete for the same receptors such as Ipratropium and tiotropium. I would continue mucomyst with albuterol as long as it is helping produce expectoration of secretions. I agree with ongoing macrolide antibiotics which have been shown to reduce exacerbations. There is currently no role for chronic systemic steroids in COPD and would favor a prolonged taper to off. I dc'd spiriva and singulair today. An elevated IgE is not diagnostic of asthma. Resuming spiriva at ca in place of duoneb would be reasonable. Hme pred was 20 bid; I dropped his dose to 40/day now. 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 If not already done, he would benefit from a nutrition consult and should have scheduled supplements such as ensure, boost etc. OK to bring from home * Hypoxia- titrate to sat >90% as tolerated. Agree with palliative care consult , but he refused. Subjective: Transitioned off vapotherm to baseline 3 lpm this AM. Anxious for dc home Objective: Vital Signs Temp Pulse Resp BP Pulse Ox 36.9 C 105 H 17 128/75 H 97 10/28/18 07:05 10/28/18 07:05 10/28/18 07:05 10/28/18 07:05 10/28/18 07:05 Laboratory Results 10/28/18 04:02 10/28/18 04:02 10/27/18 10/28/18 10/29/18 05:59 05:59 05:59 Intake Total 550 1320 Output Total 675 1050 Balance -125 270 Physical Exam - Physical Exam General Appearance: alert, no apparent distress, cachetic, thin EENT: PERRL/EOMI Neck: supple Respiratory: lungs clear, decreased breath sounds, No respiratory distress, No accessory muscle use, No wheezing Cardiac/Chest: regular rate, rhythm, No edema, No JVD Abdomen: non-tender, soft, No distended Skin: normal color, warm/dry, No cyanosis Lymphatic: no adenopathy Extremities: No pedal edema Neuro/Psych: alert, normal mood/affect, oriented x 3 ICD10 Worksheet Patient Problems: Problems Problem Status Onset COPD (chronic obstructive pulmonary disease) Acute
--- NOTE | 2018-10-28 13:29 | HOSPPROG ---
Hospitalist Progress Note Assessment/Plan: The patient is a 77-year-old male with PMH end-stage COPD, tobacco dependence who was admitted for acute recurrent COPD exacerbation. ASSESSMENT/PLAN: Acute recurrent COPD exacerbation End-stage COPD Acute on chronic hypoxemic respiratory failure, on 3L O2 Systolic CHF, not in exacerbation Severe protein calorie malnutrition CAD s/p CABG PVD, subclavian setnosis -patient and his family refused palliative/hospice consult. -continue current lung medications. Patient on a long steroid taper. Azithromycin was added for inflammation. I have discussed the case with the it training specialist today. -continue current meds. -plan to discharge to home tomorrow. -meal supplementation per dietitian recs. VTE prophylaxis: Lovenox Code Status: DNR Status: inp for > 2 midnight stay. Disposition: Med tele with discharge anticipated tomorrow if okay with pulmonology ____ SUBJECTIVE: Today the patient feels well. No new complaints. He is currently on 3 L of oxygen. OBJECTIVE: Physical Exam: General: The patient is an elderly male who is alert and in no acute distress. HEENT: normocephalic, extraocular movements intact, conjunctivae clear. Mucous membranes moist. Neck: trachea midline, no visible masses. CV: +S1/S2, RRR, no MRG. Resp: unlabored, CTAB no RRW. Diminished breath sounds bilaterally. Abd: soft and nondistended. Musculoskeletal: Normal muscle tone/bulk. Neuro: cranial nerves II - XII grossly intact. Intact gross motor and sensory function. Psych: Appropriate mood and appropriate affect. Skin: No pallor. No petechiae. Heme/lymph: No peripheral edema at bilateral lower extremities. Labs/Imaging/Other Tests: Personally reviewed/interpreted. Objective: Vital Signs Temp Pulse Resp BP Pulse Ox 36.9 C 105 H 17 128/75 H 97 10/28/18 07:05 10/28/18 07:05 10/28/18 07:05 10/28/18 07:05 10/28/18 07:05 Laboratory Results 10/28/18 04:02 10/28/18 04:02 10/27/18 10/28/18 10/29/18 05:59 05:59 05:59 Intake Total 550 1320 Output Total 675 1050 Balance -125 270 - Time Spent With Patient Time Spent with Patient: greater than 35 minutes Time Spent with Patient: Greater than 35 minutes spent on this patients care, greater than 50% of time spent counseling, educating, and coordinating care regarding the above mentioned plan. ICD10 Worksheet Patient Problems: Problems Problem Status Onset Acute coronary syndrome Acute Arrhythmia Acute Chronic obstructive pulmonary disease with acute exacerbation Acute Congestive heart failure Acute COPD (chronic obstructive pulmonary disease) Acute
[2018-10-29] MEDS: ACETYLCYSTEINE 10% IH/PO 4 ML VIAL IH SCH ×4 (06:00→21:01)
[2018-10-29] MEDS: IPRATROPIUM/ALBUTEROL 3 ML DEYVIAL IH SCH ×4 (06:00→21:01)
[2018-10-29] MEDS: BUDESONIDE/FORMOTEROL 160/4.5 60 PUFFS/MDI IH SCH ×2 (10:16→21:03)
[2018-10-29] MEDS: predniSONE 20 MG TAB PO SCH (10:25)
[2018-10-29] MEDS: guaiFENesin 600 MG TAB.ER PO SCH ×2 (10:25→20:23)
[2018-10-29] MEDS: AZITHROMYCIN 250 MG TAB PO SCH (10:25)
[2018-10-29] MEDS: ASPIRIN EC 81 MG TAB PO SCH (10:25)
[2018-10-29] MEDS: LISINOPRIL 5 MG TAB PO SCH (10:26)
[2018-10-29] MEDS: ENOXAPARIN 40 MG/0.4 ML SYR SC SCH (10:26)
[2018-10-29] MEDS: VENLAFAXINE XR 75 MG CAP PO SCH (10:27)
[2018-10-29] MEDS ORDERED: POTASSIUM CL 10 MEQ TAB PO ONE (14:03)
--- NOTE | 2018-10-29 19:59 | HOSPPROG ---
Hospitalist Progress Note Assessment/Plan: The patient is a 77-year-old male with PMH end-stage COPD, tobacco dependence who was admitted for acute recurrent COPD exacerbation. ASSESSMENT/PLAN: Acute recurrent COPD exacerbation End-stage COPD Acute on chronic hypoxemic respiratory failure, on 3L O2 Systolic CHF, not in exacerbation Severe protein calorie malnutrition CAD s/p CABG PVD, subclavian setnosis -patient and his family refused palliative/hospice consult. -continue current lung medications. Patient on a steroid taper. Azithromycin was added for inflammation. I have discussed the case with the manager audio today. -continue current meds. -plan to discharge to home tomorrow. -meal supplementation per dietitian recs. VTE prophylaxis: Lovenox Code Status: DNR Status: inp for > 2 midnight stay. Disposition: Med tele with discharge anticipated tomorrow if okay with pulmonology ____ SUBJECTIVE: Today the patient feels well. No new complaints. He is currently on 3 L of oxygen. OBJECTIVE: Physical Exam: General: The patient is an elderly male who is alert and in no acute distress. HEENT: normocephalic, extraocular movements intact, conjunctivae clear. Mucous membranes moist. Neck: trachea midline, no visible masses. CV: +S1/S2, RRR, no MRG. Resp: unlabored, CTAB no RRW. Diminished breath sounds bilaterally. Abd: soft and nondistended. Musculoskeletal: Normal muscle tone/bulk. Neuro: cranial nerves II - XII grossly intact. Intact gross motor and sensory function. Psych: Appropriate mood and appropriate affect. Skin: No pallor. No petechiae. Heme/lymph: No peripheral edema at bilateral lower extremities. Labs/Imaging/Other Tests: Personally reviewed/interpreted. Objective: Vital Signs Temp Pulse Resp BP Pulse Ox 36.6 C 83 20 116/58 L 95 10/29/18 18:59 10/29/18 18:59 10/29/18 18:59 10/29/18 18:59 10/29/18 18:59 Laboratory Results 10/28/18 04:02 10/29/18 18:22 10/28/18 10/29/18 10/30/18 05:59 05:59 05:59 Intake Total 1320 150 Output Total 1050 650 420 Balance 270 -500 -420 ICD10 Worksheet Patient Problems: Problems Problem Status Onset Acute coronary syndrome Acute Arrhythmia Acute Chronic obstructive pulmonary disease with acute exacerbation Acute Congestive heart failure Acute COPD (chronic obstructive pulmonary disease) Acute
[2018-10-30] MEDS: ACETYLCYSTEINE 10% IH/PO 4 ML VIAL IH SCH ×2 (05:13→10:15)
[2018-10-30] MEDS: IPRATROPIUM/ALBUTEROL 3 ML DEYVIAL IH SCH ×2 (05:14→10:15)
[2018-10-30] MEDS: ENOXAPARIN 40 MG/0.4 ML SYR SC SCH (09:10)
[2018-10-30] MEDS: predniSONE 20 MG TAB PO SCH (09:10)
[2018-10-30] MEDS: ASPIRIN EC 81 MG TAB PO SCH (09:10)
[2018-10-30] MEDS: LISINOPRIL 5 MG TAB PO SCH (09:10)
[2018-10-30] MEDS: VENLAFAXINE XR 75 MG CAP PO SCH (09:10)
[2018-10-30] MEDS: AZITHROMYCIN 250 MG TAB PO SCH (09:10)
[2018-10-30 09:19] VITALS: BP 98/60
--- NOTE | 2018-10-30 10:04 | PDHOMEO2F ---
Home Oxygen Face to Face Home Orders: I certify that a physician or a nurse practitioner or physician's healthcare administrative assistant has had a gwpx-me-yono encounter with this patient on the date of this order due to the diagnosis listed, which relates to the primary reason the patient requires home oxygen. Alternative treatments have been tried, or considered, and deemed ineffective. It is anticipated that supplemental oxygen will result in improvement with treatment. Home oxygen qualifying diagnosis: severe COPD, pulmonary HTN, chronic hypoxemic resp failure SpO2 on room air (%): 86 Frequency of home oxygen needed: with activity Home oxygen liters per minute: 3 Home oxygen delivery device: nasal cannula Concentrator: Yes E-tanks for mobility and back up: Yes If ordering portable O2, is the patient mobile in the home?: Yes I certify that, based on these findings, the home oxygen is medically necessary for this patient for the following length of time. Length of time home oxygen needed: 99 years (Needs portable O2, already has home O2) Home Oxygen Comment: needs portable O2, already has Home O2
[2018-10-30] MEDS: BUDESONIDE/FORMOTEROL 160/4.5 60 PUFFS/MDI IH SCH (10:15)
[2018-10-30] MEDS: guaiFENesin 600 MG TAB.ER PO SCH (10:23)
--- NOTE | 2018-10-30 11:33 | ASMTLACE ---
LACE Length of stay for Answers: 7-13 days current admission Acuity / Level of Answers: Yes Care: Did the patient have an inpatient admission? Comorbidities - select Answers: Chronic pulmonary disease all that apply Coronary Artery Disease Peripheral vascular disease Previous myocardial infarction # of Emergency department Answers: 1-2 visits in the last 6 months Score: 15 Date Signed: 10/30/2018 11:32 AM Electronically Signed By:Miryam Leal RN
--- NOTE | 2018-10-30 11:37 | ASMTDCNOTE ---
Case Management Discharge Discharge Order Complete? Answers: Yes Patient to Obtain Answers: via Family Medications Transportation Arranged Answers: Family/Friends Discharge Comments Notes: 10/30/3018 Case Management Note Met w/pt. Pt continues to decline home care, palliative care and meals on wheels. [employer] delivered portable O2 to room. Case Management d/c poc: independent with family support and follow up as directed. Date Signed: 10/30/2018 11:36 AM Electronically Signed By:Miryam Leal RN
--- NOTE | 2018-10-30 11:54 | ASDISCHSUM ---
Discharge Information Plan Status:Home with No Needs Medically Cleared to Leave:10/30/2018 Discharge Date:10/30/2018 CM D/C Disposition:Home, Routine, Self-Care ADT D/C Disposition:Home, Routine, Self-Care Projected Discharge Date:10/26/2018 11:00 AM Transportation at D/C:Family Discharge Delay Reason: Follow-Up Date:10/26/2018 11:00 AM Discharge Slot: Final Diagnosis: Placement Information Referral Type:Palliative Care Referral ID:[id number] Provider Name: Address 1: Phone Number: Address 2: Fax Number: City: Selection Factors: State: Patient Contact Information Contact Name:EDGAR Relationship: Address:[address] Work Phone: Lisa:MICAELA [facility] Phone: [facility] Code:[place] [address] Email: Financial Information Financial Class:Medicare Primary Plan Desc:MEDICARE INPATIENT Primary Plan Number:[id number] Secondary Plan Desc:[employer]/MDR SUPPLEMENT Secondary Plan Number:[id number] Assessment Information LACE LACE Length of stay for Answers: 7-13 days current admission Acuity / Level of Answers: Yes Care: Did the patient have an inpatient admission? Comorbidities - select Answers: Chronic pulmonary disease all that apply Coronary Artery Disease Peripheral vascular disease Previous myocardial infarction # of Emergency department Answers: 1-2 visits in the last 6 months Score: 15 Date Signed: 10/30/2018 11:32 AM Electronically Signed By:Miryam Leal RN [facility] Progress Note CM Vance CM Note Notes: Pt is a 77 y/o man admitted for shortness of breath. Pt uses 2L of o2 at baseline. Pt is a smoker but reportedly had cut down. Pt and pts adult children had a palliative today w/ [facility]. PT is recommending HC. Pts daughter wanted to speak to their Mom and did not want CM to call. OT is pending. CM provided palliative handout to daughters to give to Mom. Pt does not use a walker or cane at baseline. Pt still drives or has his children drive him places. Pt is being followed by transitional care. Pt is still in the process of getting [employer] insurance. Pt is interested in unskilled HC. [facility] accepts [place] insurance and provides unskilled care. CM provided the [facility]'s phone number to family. Needs are TBD at this time. CM to follow. Plan: TBD Date Signed: 10/23/2018 02:37 PM Electronically Signed By:CHASE Carrion [facility] Progress Note CM Note CM Note Notes: CM, pt and daughter Isamar [phone] met to discuss discharge planning. Pt reports he lives with his . PCP Dr. Fredrick Muniz Pt is refusing Home Care due not feeling comfortable with people in an out of the house. CM sent referral to [facility]. [facility] reports that they will call Isamar to set up in hospital report. After Pt and daughter feel comfortable with [facility] they will then speak to about working with [facility]. CM will follow Plan: Independently with possible [facility] Date Signed: 10/24/2018 02:57 PM Electronically Signed By:Fany Alvarez [facility] Progress Note CM Note CM Note Notes: Rasheed at [facility] [phone] reports that he set up an appt with the daughter and the earliest appt is tomorrow morning. CM to follow Date Signed: 10/24/2018 04:17 PM Electronically Signed By:Fany Alvarez [facility] CM Progress Note CM Note CM Note Notes: Reviewed chart regarding discharge plan of care, pt's progress. Per CM report, pt was scheduled to meet with [facility] today for a Palliative Care evaluation. Call placed to [facility] to confirm meeting time; spoke with Rasheed. Per Rasheed, the pt's family canceled the appointment which was previously scheduled for 10:00 today. Rasheed said the decision to cancel was based upon new information and medication adjustments by the doctor. Per unit rounds and Dr. Valdez, the pt remains appropriate for Palliative Care services. CM requested [facility] follow up with the pt and family on Friday10/26/18. Per Rasheed, Shira from [facility] will reach out to the family. CM will continue to follow. Discharge Plan: To be determined, possible [facility] Date Signed: 10/25/2018 03:25 PM Electronically Signed By:Aleksandra Reyes RN [facility] CM Progress Note CM Note CM Note Notes: Pts case discussed in tx rounds. CM spoke w/ pts daughter Sindhu (P#: [phone]). Sindhu reports that her Mom, pts makes all the decisions and they are not interested in HC or palliative at this time. Sindhu is requesting that [facility] stops calling. CM communicated this w/ [facility]. CM communicated this w/ Dutch with palliative. CM available for changes. Plan: Independent Date Signed: 10/27/2018 04:05 PM Electronically Signed By:CHASE Carrion Case Management Discharge Plan Note Case Management Discharge Discharge Order Complete? Answers: Yes Patient to Obtain Answers: via Family Medications Transportation Arranged Answers: Family/Friends Discharge Comments Notes: 10/30/3018 Case Management Note Met w/pt. Pt continues to decline home care, palliative care and meals on wheels. [employer] delivered portable O2 to room. Case Management d/c poc: independent with family support and follow up as directed. Date Signed: 10/30/2018 11:36 AM Electronically Signed By:Miryam Leal RN Intervention Information Intervention Type:*Incorrect Registration Date of Service:10/22/2018 09:54 AM Patient Type:Inpatient Staff Member:SHAHRIAR Landry, Chela Hours: Discipline: Severity: Comment: Intervention Type:*IM-Signed Date of Service:10/29/2018 10:13 AM Patient Type:Inpatient Staff Member:Laura Elliott Hours: Discipline: Severity: Comment:
--- NOTE | 2018-10-30 15:51 | PDHOMEO2F ---
Home Oxygen Face to Face Home Orders: I certify that a physician or a nurse practitioner or physician's nutrition services assistant has had a [id number] encounter with this patient on the date of this order due to the diagnosis listed, which relates to the primary reason the patient requires home oxygen. Alternative treatments have been tried, or considered, and deemed ineffective. It is anticipated that supplemental oxygen will result in improvement with treatment. Home oxygen qualifying diagnosis: severe COPD, pulmonary HTN, chronic hypoxemic resp failure SpO2 on room air (%): 83 Frequency of home oxygen needed: with activity, continuous Home oxygen liters per minute: 3 Home oxygen delivery device: nasal cannula Concentrator: Yes E-tanks for mobility and back up: Yes If ordering portable O2, is the patient mobile in the home?: Yes I certify that, based on these findings, the home oxygen is medically necessary for this patient for the following length of time. Length of time home oxygen needed: 99 years (portable)
== END 2018-10-30 13:14 | disposition home or self-care (01) | DRG 190 ==
LOC: OBSVTOIN 21:06 → F2W 21:30
PROVIDERS: ADMIT Internal Medicine; ATTEND Internal Medicine
DX: J44.1 Chronic obstructive pulmonary disease with (acute) exacerbation (principal); J96.21 Acute and chronic respiratory failure with hypoxia; E43 Unspecified severe protein-calorie malnutrition; I50.22 Chronic systolic (congestive) heart failure; F17.200 Nicotine dependence, unspecified, uncomplicated; I25.5 Ischemic cardiomyopathy; Z99.81 Dependence on supplemental oxygen; I25.2 Old myocardial infarction; N40.0 Benign prostatic hyperplasia without lower urinary tract symptoms; E86.9 Volume depletion, unspecified; I48.91 Unspecified atrial fibrillation; I25.10 Atherosclerotic heart disease of native coronary artery without angina pectoris; Z66 Do not resuscitate; Z95.1 Presence of aortocoronary bypass graft; Z95.5 Presence of coronary angioplasty implant and graft
CPT/HCPCS: 84484-ER; 96374; 97162-GP; 97165-GO; 97535-GO; J0456; J1650; J2930; J7512; J7613; Q9967